=== PATIENT | male | born 1940 | race Two or more races ===

== ENCOUNTER 2022-01-13 08:20 | Emergency (ER) | payer OTHER ==
[~2022-01-13] VITALS: Ht 170.2 cm; Wt 78.0 kg
[2022-01-13] MEDS ORDERED: DOXAZOSIN MESYLA4 MG PO (08:49)
[2022-01-13] MEDS ORDERED: LOSARTAN POTAS100 MG PO (08:49)
[2022-01-13] MEDS ORDERED: LANOXIN125 MCG PO (08:50)
[2022-01-13] MEDS ORDERED: TRIAMTERENE-HC1 EAC3 PO (08:51)
[2022-01-13] MEDS ORDERED: IRON325 MG PO (08:52)
[2022-01-13] MEDS ORDERED: SIMVASTATIN PO (08:54)
[2022-01-13] MEDS ORDERED: MUCINEX1200 MG PO (13:25)
== END 2022-01-13 13:37 | disposition home or self-care (01) ==
LOC: ER 08:20
DX: B34.9 Viral infection, unspecified (principal); I48.91 Unspecified atrial fibrillation; I10 Essential (primary) hypertension; D64.9 Anemia, unspecified

== ENCOUNTER 2023-07-04 07:45 | Inpatient (IN) | payer OTHER ==
[~2023-07-04] VITALS: Ht 170.2 cm; Wt 165.6 kg
[~2023-07-04 07:45] MED LIST: DOXAZOSIN MESYLA4 MG PO; IRON325 MG PO; LANOXIN125 MCG PO; LOSARTAN POTAS100 MG PO; MUCINEX1200 MG PO; SIMVASTATIN PO; TRIAMTERENE-HC1 EAC3 PO
[2023-07-04] MEDS ORDERED: SIMVASTATIN20 MG PO (08:03)
[2023-07-04] MEDS ORDERED: HYDRALAZINE HCL50 MG PO (08:05)
[2023-07-04] MEDS ORDERED: BUMETANIDE0.5 MG PO (08:05)
[2023-07-04] MEDS ORDERED: LOKELMA10 GM PO (08:05)
[2023-07-04] MEDS ORDERED: PANTOPRAZOLE SO40 M2 PO (08:05)
[2023-07-04] MEDS ORDERED: DAFLONEX-XL 11300 MG PO (08:06)
[2023-07-04] MEDS ORDERED: METOLAZONE5 MG PO (08:06)
[2023-07-04] MEDS ORDERED: PROTEINEX LIQU473 ML (08:06)
[2023-07-04] MEDS ORDERED: FARXIGA10 MG PO (08:07)
[2023-07-04 09:31] LABS: URINE APPEARANCE Clear; URINE BILIRRUBIN Negative (NEGATIVE); URINE BLOOD Negative; URINE COLOR Yellow; URINE GLUCOSE Negative (NEGATIVE); URINE LEUKOCYTE Negative; URINE NITRATE Negative; URINE PROTEIN Trace (NEGATIVE); URINE UROBILINOGEN 0.2 E.U./dl
[2023-07-04 09:36] LABS: URINE BACTERIA 12.5 uL (0.0-1933); URINE EPITHELIAL CELLS 1.8 uL (0.0-38.8)
[2023-07-04 09:42] LABS: URINE RBC 0.2 uL (0.0-20.8); URINE WBC 0.4 uL (0.0-23.2)
[2023-07-04 10:19] LABS: INR 1.1; PARTIAL THROMBOPLASTIN TIME 29.9 SECONDS (22.0-34.0); PROTHROMBIN TIME 11.5 SECONDS (9.0-11.5)
[2023-07-04 10:30] LABS: ABG PH 7.447 (7.35-7.45); ABG PO2 84.6 mmHg (80-100); BASE EXCESS -0.4 mmol/l; BICARBONATE 22.9 mmol/l (23-25); SaO2 96.8 %; allen test SATISFACTORY; o2 21 %; puncture site RADIAL LEFT
[2023-07-04 10:40] LABS: HEMATOCRIT 27.1 % (39.0-48.0); HEMOGLOBIN 9.3 g/dL (13-16.00); MEAN CELL VOLUME 88.2 fL (80.0-100.00); MEAN CORPUSCULAR HEMOGLOBIN 30.2 pg (27.00-32.0); MEAN CORPUSCULAR HGB CONC 34.2 g/dl (32.0-36.0); PLATELET COUNT 146 K/uL (150-450); RED BLOOD COUNT 3.07 M/uL (4.00-6.00); RED CELL DISTRIBUTION WIDTH 15.2 % (11.5-14.5)
[2023-07-04 11:44] LABS: ALBUMIN 3.5 gm/dL (3.4-5.0); BILIRUBIN TOTAL 0.92 mg/dL (0.3-1.2); CALCIUM 8.9 mg/dL (8.5-10.1); CREATININE SERUM 2.57 mg/dL (0.70-1.30); GFR 24.07; GLOBULINA 3.9 G/DL (2.4-3.5); POTASSIUM 3.96 mEq/L (3.5-5.1); TOTAL PROTEIN 7.4 gm/dL (6.4-8.2)
[2023-07-05 07:37] LABS: ALBUMIN 3.2 gm/dL (3.4-5.0); BILIRUBIN TOTAL 0.63 mg/dL (0.3-1.2); CALCIUM 8.4 mg/dL (8.5-10.1); CREATININE SERUM 2.12 mg/dL (0.70-1.30); GFR 30.06; GLOBULINA 3.1 G/DL (2.4-3.5); MAGNESIUM 2.8 mg/dL (1.8-2.4); PHOSPHOROUS 5.2 mg/dL (2.5-4.9); POTASSIUM 3.82 mEq/L (3.5-5.1); TOTAL PROTEIN 6.3 gm/dL (6.4-8.2)
[2023-07-05 07:38] LABS: HEMATOCRIT 24.6 % (39.0-48.0); MEAN CELL VOLUME 86.1 fL (80.0-100.00); MEAN CORPUSCULAR HGB CONC 35.1 g/dl (32.0-36.0); PLATELET COUNT 147 K/uL (150-450); RED BLOOD COUNT 2.86 M/uL (4.00-6.00); RED CELL DISTRIBUTION WIDTH 15.1 % (11.5-14.5)
[2023-07-05 07:53] LABS: HEMOGLOBIN 8.7 g/dL (13-16.00); MEAN CORPUSCULAR HEMOGLOBIN 30.4 pg (27.00-32.0)
[2023-07-06 07:30] LABS: ALBUMIN 2.9 gm/dL (3.4-5.0); BILIRUBIN TOTAL 0.43 mg/dL (0.3-1.2); CALCIUM 8.3 mg/dL (8.5-10.1); CREATININE SERUM 2.65 mg/dL (0.70-1.30); GFR 23.23; POTASSIUM 3.88 mEq/L (3.5-5.1); TOTAL PROTEIN 5.9 gm/dL (6.4-8.2)
[2023-07-06 15:13] LABS: ALBUMIN 3.2 gm/dL (3.4-5.0); BILIRUBIN TOTAL 0.5 mg/dL (0.3-1.2); CALCIUM 8.3 mg/dL (8.5-10.1); CREATININE SERUM 2.6 mg/dL (0.70-1.30); GFR 23.75; GLOBULINA 3.1 G/DL (2.4-3.5); POTASSIUM 4.03 mEq/L (3.5-5.1); TOTAL PROTEIN 6.3 gm/dL (6.4-8.2)
[2023-07-07] MEDS ORDERED: SIMVASTATIN20 MG PO (11:14)
[2023-07-07] MEDS ORDERED: DOXAZOSIN MESYLA4 MG PO (11:14)
[2023-07-07] MEDS ORDERED: INTEGRA PLUS C1 EACH PO (11:14)
[2023-07-07] MEDS ORDERED: INTESTINEX680 M1 PO (11:15)
[2023-07-07] MEDS ORDERED: PANTOPRAZOLE SO40 MG PO (11:15)
[2023-07-07] MEDS ORDERED: PROTEINEX-18 LI30 ML PO (11:15)
[2023-07-07] MEDS ORDERED: LOSARTAN POTAS100 MG PO (11:16)
[2023-07-07] MEDS ORDERED: HYDRALAZINE HCL50 MG PO (11:16)
[2023-07-07] MEDS ORDERED: AZITHROMYCIN250 MG PO (11:39)
[2023-07-07] MEDS ORDERED: AMOX1TAB5 PO (11:39)
== END 2023-07-07 16:08 | disposition home or self-care (01) | DRG 194 ==
LOC: ER 07:46 → MEDJ 15:34
PROVIDERS: General Practice; Internal Medicine; Internal Medicine Nephrology; ADMIT Internal Medicine; ATTEND Internal Medicine
PROC: BB24ZZZ Computerized Tomography (CT Scan) of Bilateral Lungs (ICD-10-PCS; principal; 2023-07-04)
PROC: B246ZZZ Ultrasonography of Right and Left Heart (ICD-10-PCS; 2023-07-04)
DX: J18.9 Pneumonia, unspecified organism (principal); N17.8 Other acute kidney failure; D63.1 Anemia in chronic kidney disease; E78.49 Other hyperlipidemia; I12.9 Hypertensive chronic kidney disease with stage 1 through stage 4 chronic kidney disease, or unspecified chronic kidney disease; N18.30 Chronic kidney disease, stage 3 unspecified

== ENCOUNTER 2023-09-15 15:29 | Inpatient (IN) | payer OTHER ==
[~2023-09-15] VITALS: Ht 170.2 cm; Wt 77.1 kg
[~2023-09-15 15:29] MED LIST changes: +AMOX1TAB5 PO; +AZITHROMYCIN250 MG PO; +BUMETANIDE0.5 MG PO; +DAFLONEX-XL 11300 MG PO; +FARXIGA10 MG PO; +HYDRALAZINE HCL50 MG PO; +INTEGRA PLUS C1 EACH PO; +INTESTINEX680 M1 PO; +LOKELMA10 GM PO; +METOLAZONE5 MG PO; +PANTOPRAZOLE SO40 M2 PO; +PANTOPRAZOLE SO40 MG PO; +PROTEINEX LIQU473 ML; +PROTEINEX-18 LI30 ML PO; +SIMVASTATIN20 MG PO
[2023-09-15 16:30] LABS: URINE APPEARANCE Clear; URINE BILIRRUBIN Negative (NEGATIVE); URINE BLOOD Negative; URINE COLOR Yellow; URINE GLUCOSE Negative (NEGATIVE); URINE LEUKOCYTE Negative; URINE NITRATE Negative; URINE PROTEIN Trace (NEGATIVE); URINE UROBILINOGEN 0.2 E.U./dl
[2023-09-15 16:40] LABS: URINE BACTERIA 3.7 uL (0.0-1933); URINE EPITHELIAL CELLS 0.4 uL (0.0-38.8); URINE RBC 0.2 uL (0.0-20.8); URINE WBC 0.1 uL (0.0-23.2)
[2023-09-15 16:46] LABS: MEAN CELL VOLUME 84.5 fL (80.0-100.00); MEAN CORPUSCULAR HEMOGLOBIN 27.9 pg (27.00-32.0); RED BLOOD COUNT 2.83 M/uL (4.00-6.00)
[2023-09-15 16:49] LABS: INR 1.04; PROTHROMBIN TIME 10.9 SECONDS (9.0-11.5)
[2023-09-15 16:59] LABS: HEMOGLOBIN 7.9 g/dL (13-16.00)
[2023-09-15 17:00] LABS: HEMATOCRIT 23.9 % (39.0-48.0); PLATELET COUNT 104 K/uL (150-450)
[2023-09-15 17:03] LABS: ALBUMIN 3.8 gm/dL (3.4-5.0); BILIRUBIN TOTAL 0.6 mg/dL (0.3-1.2); CALCIUM 8.4 mg/dL (8.5-10.1); CREATININE SERUM 2.44 mg/dL (0.70-1.30); FERRITIN 121.5 NG/ML (26-388); GFR 25.55; GLOBULINA 2.8 G/DL (2.4-3.5); POTASSIUM 4.9 mEq/L (3.5-5.1); TOTAL PROTEIN 6.6 gm/dL (6.4-8.2)
[2023-09-15] MEDS ORDERED: MULTIVIT INFUSN,ADULT 4,VIT K 10 ML VIAL IV SCH (17:17)
[2023-09-15] MEDS ORDERED: MULTIVIT INFUSN,ADULT 4,VIT K 10 ML in 0.9 % SODIUM CHLORIDE 1,000 ML IV SCH (17:30)
[2023-09-15] MEDS ORDERED: SIMVASTATIN 20 MG TABLET PO SCH (17:37)
[2023-09-15] MEDS ORDERED: hydrALAZINE HCL 50 MG TABLET PO SCH (17:37)
[2023-09-15] MEDS ORDERED: ONDANSETRON HCL 2 MG/ML VIAL IV PRN (17:45)
[2023-09-15] MEDS ORDERED: CLONAZEPAM 1 MG TABLET PO PRN (17:45)
[2023-09-15] MEDS ORDERED: FUROsemide 20 MG/2 ML VIAL IV SCH (18:45)
[2023-09-15] MEDS ORDERED: 0.9 % SODIUM CHLORIDE 1,000 ML IV SCH (18:45)
[2023-09-15] MEDS ORDERED: FAMOTIDINE/PF 20 MG/2 ML VIAL IV SCH (21:00)
[2023-09-15] MEDS ORDERED: DOXAZOSIN MESYLATE 4 MG TABLET PO SCH (21:00)
[2023-09-16] MEDS ORDERED: LOSARTAN POTASSIUM 100 MG TABLET PO SCH (09:00)
[2023-09-16] MEDS ORDERED: PREDNISONE 5 MG TABLET PO SCH (18:00)
[2023-09-17 03:44] LABS: HEMATOCRIT 26.8 % (39.0-48.0); HEMOGLOBIN 9.2 g/dL (13-16.00); MEAN CELL VOLUME 84.5 fL (80.0-100.00); MEAN CORPUSCULAR HGB CONC 34.4 g/dl (32.0-36.0); PLATELET COUNT 88 K/uL (150-450); RED BLOOD COUNT 3.17 M/uL (4.00-6.00)
[2023-09-17] MEDS ORDERED: FAMOTIDINE/PF 20 MG/2 ML VIAL IV SCH (09:00)
[2023-09-17 15:11] LABS: CYCLIC CITRULLINE PEPTIDE < 2 units (0-19)
[2023-09-17] MEDS ORDERED: RAYOS5 MG PO (17:13)
[2023-09-17] MEDS ORDERED: PEPCID AC20 MG PO (17:14)
== END 2023-09-17 17:55 | disposition home or self-care (01) | DRG 810 ==
LOC: SEC-K 15:29 → SURH 15:29 → SEC-K 20:41 → SURH 20:42
PROVIDERS: ADMIT Internal Medicine Hematology & Oncology; ATTEND Internal Medicine Hematology & Oncology
PROC: BW40ZZZ Ultrasonography of Abdomen (ICD-10-PCS; principal; 2023-09-15)
PROC: B246ZZZ Ultrasonography of Right and Left Heart (ICD-10-PCS; 2023-09-15)
PROC: 4A12X4Z Monitoring of Cardiac Electrical Activity, External Approach (ICD-10-PCS; 2023-09-16)
PROC: 30233N1 Transfusion of Nonautologous Red Blood Cells into Peripheral Vein, Percutaneous Approach (ICD-10-PCS; 2023-09-16)
DX: D61.818 Other pancytopenia (principal); D50.0 Iron deficiency anemia secondary to blood loss (chronic); I27.29 Other secondary pulmonary hypertension
CPT/HCPCS: 240